=== PATIENT | female | born 1960 | race Caucasian/White ===

== ENCOUNTER 2019-05-01 11:53 | Inpatient (IN) | payer OTHER ==
[~2019-05-01] VITALS: Ht 167.6 cm; Wt 75.8 kg
[2019-05-01] VITALS (10 sets, daily range): BP systolic 101–130; BP diastolic 54–86
[2019-05-01 12:15] LABS: BASO % 0.2 % (0.0-1.0); EOS # 0.1 10*3/uL (0.0-0.4); EOS % 0.3 % (1.0-4.0); HEMATOCRIT 38.1 % (37.0-47.0); HEMOGLOBIN 13.2 g/dl (12.0-16.0); LYMPH # 1.2 10*3/uL (1.3-4.4); LYMPH % 6.2 % (27.0-41.0); MEAN CELL VOLUME 90.3 fl (81.0-99.0); MEAN CORPUSCULAR HGB 31.3 pg (27.0-31.0); MEAN CORPUSCULAR HGB CONC 34.6 g/dl (33.0-37.0); MEAN PLATELET VOLUME 10.9 fl (9.6-12.3); MONO % 5.1 % (3.0-9.0); NEUT # 16.4 10*3/uL (2.3-7.9); NEUT % 87.2 % (47.0-73.0); PLATELET COUNT AUTOMATED 195 10*3/uL (130-400); RED BLOOD COUNT 4.22 10*6/uL (4.10-5.10); RED CELL DISTRI WIDTH 12.7 % (0-14.5); WHITE BLOOD COUNT 18.7 10*3/uL (4.8-10.8)
[2019-05-01 12:36] LABS: ACT PARTIAL THROMBO TIME 27.1 SECONDS (20.0-32.1); INTERNATIONAL NORM RATIO 0.9 (2.0-3.5)
[2019-05-01 12:40] LABS: ALBUMIN 3.3 gm/dl (3.1-4.5); ALKALINE PHOSPHATASE 81 U/L (45-117); BUN 35 mg/dl (7-24); CHLORIDE 104 mmol/L (98-107); CREATININE 0.95 mg/dL (0.55-1.02); POTASSIUM 3.4 mmol/L (3.5-5.1); SGOT/AST 7 IU/L (3-35); SGPT/ALT 19 U/L (12-78); SODIUM 137 mmol/L (136-145); TOTAL PROTEIN 7.4 gm/dL (6.4-8.2)
[2019-05-01 12:42] LABS: TROPONIN I < 0.015 ng/ml (<0.045)
--- NOTE | 2019-05-01 14:40 | NUR ---
A 58, admitted to , under the services of [facility] Hagen DO with a diagnosis of PNEUMONIA, SEVERE SEPSIS. Chief complaint is MULTIPLE COMPLAINTS. Patient arrived via ambulatory from ER. Monitor applied. Initial assessment completed. Vital signs taken and recorded. DINH HAGEN DO notified of admission to the unit. Orders received. See assessment for past medical history, medications and allergies. Patient and/or family oriented to unit. [facility] visitation policy reviewed. Clothing/patient valuable form completed. CHRISTIE SAMPSON
--- NOTE | 2019-05-01 18:20 | NUR ---
PT MEDICATED W/MORPHINE FOR C/O LEFT CHEST PAIN 03/10. WILL MONITOR FOR EFFECTIVENESS.
--- NOTE | 2019-05-01 19:00 | NUR ---
PT RESTING QUIETLY IN BED W/EYES CLOSED. PRN MORPHINE EFFECTIVE FOR PAIN RELIEF.
--- NOTE | 2019-05-01 19:05 | NUR ---
Pt instructed on use of incentive spirometer and flutter valve. Pt complained of pain when taking a deep breath on IS and could not raise the disc to 500cc. Explained to pt that it is very important to deep breathe. Take walks and sit up in bed. Pt cried and said it hurt. Then explained the FV to the pt and informed her to use for secretions only and encouraged self use.
[2019-05-02] VITALS: BP 112/64
--- NOTE | 2019-05-02 00:15 | NUR ---
PATIENT RESTING IN BED IN A POSITION OF COMFORT, STATED PAIN HAS IMPROVED FROM A 9 TO A 6 AFTER BEING MEDICATED WITH MORPHINE. DENIES ANY OTHER NEEDS AT THIS TIME. CALL LIGHT WITHIN REACH. WILL CONTINUE TO MONITOR.
--- NOTE | 2019-05-02 04:10 | NUR ---
PATIENT RESTING IN BED IN A POSITION OF COMFORT, RESTING WITH EYES CLOSED BUT ARROUSABLE, RESPIRATIONS EASY AND NON-LABORED. CALL LIGHT WITHIN REACH. WILL CONTINUE TO MONITOR.
--- NOTE | 2019-05-02 05:48 | NUR ---
PATIENT MEDICATED AT HER REQUEST AT THIS TIME WITH NORCO FOR PAIN OF 8/10. ALERT AND ORIENTED, CALL LIGHT WITHIN REACH. WILL CONTINUE TO MONITOR.
--- NOTE | 2019-05-02 06:25 | NUR ---
PATIENT STATED THE PAIN IS BETTER AND STATED IT IS A 5/10 AT THIS TIME. PATIENT IS ALERT AND ORIENTED. CALL LIGHT WITHIN REACH. WILL CONTINUE TO MONITOR.
[2019-05-02 07:07] LABS: HEMATOCRIT 35.4 % (37.0-47.0); HEMOGLOBIN 11.8 g/dl (12.0-16.0); MEAN CORPUSCULAR HGB 31.3 pg (27.0-31.0); MEAN CORPUSCULAR HGB CONC 33.3 g/dl (33.0-37.0); MEAN PLATELET VOLUME 12.1 fl (9.6-12.3); PLATELET COUNT AUTOMATED 197 10*3/uL (130-400); RED BLOOD COUNT 3.77 10*6/uL (4.10-5.10); RED CELL DISTRI WIDTH 12.9 % (0-14.5); WHITE BLOOD COUNT 13.1 10*3/uL (4.8-10.8)
[2019-05-02 07:09] LABS: MEAN CELL VOLUME 93.9 fl (81.0-99.0)
[2019-05-02 07:10] LABS: INTERNATIONAL NORM RATIO 0.9 (2.0-3.5)
[2019-05-02 07:11] LABS: ALBUMIN 2.7 gm/dl (3.1-4.5); CHLORIDE 110 mmol/L (98-107); CHOLESTEROL 126 mg/dL (<200); CREATININE 0.71 mg/dL (0.55-1.02); HDL CHOLESTEROL 41 mg/dl (40-60); LDL CHOLESTEROL 71 mg/dL (9-159); PHOSPHOROUS 1.7 mg/dL (2.5-4.9); SGOT/AST 11 IU/L (3-35); SGPT/ALT 18 U/L (12-78); SODIUM 140 mmol/L (136-145); TOTAL PROTEIN 6.8 gm/dL (6.4-8.2); TRIGLYCERIDES 68 mg/dl (<150); VLDL CHOLESTEROL 14 mg/dL (6-40)
[2019-05-02 07:16] LABS: ALKALINE PHOSPHATASE 73 U/L (45-117); THYROID STIM HORMONE (HS) 0.344 uIU/ml (0.358-4.75)
[2019-05-02 07:34] LABS: BUN 23 mg/dl (7-24)
[2019-05-02 07:35] LABS: POTASSIUM 4.6 mmol/L (3.5-5.1)
[2019-05-02 07:48] LABS: PLATELET SUFFICIENCY NORMAL (NORMAL); TOTAL CELLS COUNTED 100 #CELLS
[2019-05-02 08:00] VITALS: BP 134/63
[2019-05-02 08:59] LABS: VITAMIN D, 25-HYDROXY 35.8 ng/mL (30-100)
[2019-05-02 12:00] VITALS: BP 131/66
--- NOTE | 2019-05-02 12:09 | NUR ---
MEDICATED WITH NORCO FOR COMPLAINTS OF PAIN IN CHEST AND IN LEFT SIDE OF BACK. RATES PAIN A 7 ON A PAIN SCALE OF 1-10
--- NOTE | 2019-05-02 14:33 | NUR ---
Server Security Administrator in to talk to patient. Patient states lives at HOME with FIANCE. There are FEW steps in the home. Physician: NONE Pharmacy: [facility] Home health services: NONE Patient's level of ADLs: INDEPENDENT Patient has working utilities: YES DME: NONE Follow-up physician's appointment after d/c: DOES NOT HAVE PCP, PT HAS LIST AT BEDSIDE Does patient want to access PORTAL?: NO Discharge plan . PT STATES SHE LIVES AT HOME ALONE AND IS INDEPENDENT IN CARE. STATES SHE WILL RETURN HOME WITH NO NEW NEEDS. WILL CONTINUE TO FOLLOW. PT STATES SHE HAS A RIDE HOME. NAM LEPE
--- NOTE | 2019-05-02 14:53 | NUR ---
SPEECH PATHOLOGY Nursing screen completed. Speech pathology services are not indicated at this time. This dept. will remain available if future needs arise. MONO BREAUX [facility]-TAG STRINGER
[2019-05-02 16:00] VITALS: BP 129/67
[2019-05-02 20:00] VITALS: BP 135/69
--- NOTE | 2019-05-02 20:32 | NUR ---
MEDICATED WITH NORCO FOR C/O BACK/CHEST PAIN RATED A 7/10.
[2019-05-03] VITALS: BP 144/67
--- NOTE | 2019-05-03 | NUR ---
RESTING IN BED WITH EYES CLOSED. MEDICATION GIVEN EARLIER APPARENTLY EFFECTIVE. CALL LIGHT WITHIN REACH.
--- NOTE | 2019-05-03 05:30 | NUR ---
AROUSES EASILY FOR MEDICATION. VOICES NO C/O AT THIS TIME. CALL LIGHT WITHIN REACH.
[2019-05-03 06:41] LABS: BASO % 0.2 % (0.0-1.0); HEMATOCRIT 36.9 % (37.0-47.0); HEMOGLOBIN 12.4 g/dl (12.0-16.0); LYMPH # 1.1 10*3/uL (1.3-4.4); LYMPH % 6.4 % (27.0-41.0); MEAN CELL VOLUME 92.3 fl (81.0-99.0); MEAN CORPUSCULAR HGB CONC 33.6 g/dl (33.0-37.0); MEAN PLATELET VOLUME 12.1 fl (9.6-12.3); MONO # 0.7 10*3/uL (0.1-1.0); MONO % 3.7 % (3.0-9.0); NEUT # 15.9 10*3/uL (2.3-7.9); PLATELET COUNT AUTOMATED 235 10*3/uL (130-400); WHITE BLOOD COUNT 17.9 10*3/uL (4.8-10.8)
[2019-05-03 06:57] LABS: BUN 20 mg/dl (7-24); CHLORIDE 109 mmol/L (98-107); POTASSIUM 4.3 mmol/L (3.5-5.1); SODIUM 139 mmol/L (136-145)
[2019-05-03 07:07] LABS: CREATININE 0.78 mg/dL (0.55-1.02); FREE T4 1.01 ng/dl (0.76-1.46)
[2019-05-03 08:00] VITALS: BP 140/70
[2019-05-03] MEDS ORDERED: FLONASE ALLERG9.9 ML NAS (09:25)
[2019-05-03] MEDS ORDERED: CLARITIN10 M1 PO (09:25)
--- NOTE | 2019-05-03 09:28 | NUR ---
NOTIFIED DR PEREA PT HOME MEDS WHERE RECONCILED AT BEDSIDE. ORDER RECIEVED TO CONTINUE HOME MEDS.
--- NOTE | 2019-05-03 09:35 | NUR ---
NORCO 5/325 MG GIVEN FOR C/O BACK PAIN,03/10.
[2019-05-03 12:00] VITALS: BP 165/80
--- NOTE | 2019-05-03 13:13 | NUR ---
RT AT BEDSIDE . PT SPO2 88% ON 2L. RT INCREASED O2 TO 3L HUMIDIFIED. WILL CONTINUE TO MONITOR. PT RESTING COMFORTABLY. VOICES NO OTHER C/O. SPO2 92%. PT CURRENTLY RECIEVING BREATHING TX. WILL CONTINUE TO MONITOR.
--- NOTE | 2019-05-03 13:37 | NUR ---
JESSERT, IN AT BEDSIDE REINFORCING INCENTIVE SPIROMETRY EDUCATION AND ENCOURAGING PT TO BE MORE PROACTIVE.
--- NOTE | 2019-05-03 14:32 | NUR ---
PT CURRENTLY SITTING IN BED DOING INCENTIVE SPIROMETRY INSTRUCTED BY RT.PT TOLERATING WELL. RESPS EASY ON 3L HUM NC. VOICES NO NEEDS AT THIS TIME. CALL LIGHT IN REACH.
--- NOTE | 2019-05-03 15:01 | NUR ---
PT CONTINUES TO SAY SHE WILL RETURN HOME WITH NO NEEDS.
[2019-05-03 16:00] VITALS: BP 182/80
--- NOTE | 2019-05-03 16:34 | NUR ---
NORCO 5/325 MG GIVEN FOR C/O BACK PAIN,02/07.
--- NOTE | 2019-05-03 16:45 | NUR ---
JULIO NOTIFIED ME THAT PT PRESSURE WAS HIGH. I TOOK MANUAL BP 182/80,HR 61.NOTIFIED DR PEREA. ORDER RECIEVED.
--- NOTE | 2019-05-03 17:31 | NUR ---
IV started right antecubital with #22 protective cath after 1 attempts. Site prepped with Chloroprep.IV started left hand with # protective cath after 1 attempts. Site prepped with Chloroprep. Sterile dressing applied Sterile dressing applied. Patient tolerated procedure well BY ELHAM JUAREZ.PT TOLERATED WELL. JENA BEARD
--- NOTE | 2019-05-03 17:58 | NUR ---
PT CURRENTLY SITTING UP AT BEDSIDE,READING NEWSPAPER. ATE DINNER BUT STILL REUSES TO GET IN BED. PT HAS EVERYTHING PACKED UP AND STATING "SHE'S LEAVING". EDUCATION PROVIDED REGARDING CALL LIGHT USE AND ATTEMPTED TO REORIENT PT. STABLE AT THIS TIME.CHAIR ALARM INTACT.CALL LIGHT IN REACH.
[2019-05-03 20:00] VITALS: BP 173/86
--- NOTE | 2019-05-03 20:47 | NUR ---
RESTING IN BED WITH EYES CLOSED. 02 INTACT AT 3LPM VIA N/C. PULSE OX 95% ON 3 LITERS. PT. VOICES NO C/O AT THIS TIME. CALL LIGHT WITHIN REACH.
[2019-05-04] VITALS: BP 142/71
--- NOTE | 2019-05-04 | NUR ---
RESTING IN BED WITH HOB ELEVATED; EYES CLOSED. 02 INTACT; NO DISTRESS NOTED. CALL LIGHT WITHIN REACH.
--- NOTE | 2019-05-04 06:00 | NUR ---
MEDICATED WITH NORCO FOR C/O PAIN RATED A 7/10.
[2019-05-04 06:49] LABS: HEMATOCRIT 36.2 % (37.0-47.0); MEAN CELL VOLUME 92.1 fl (81.0-99.0); MEAN CORPUSCULAR HGB 30.5 pg (27.0-31.0); MEAN CORPUSCULAR HGB CONC 33.1 g/dl (33.0-37.0); MEAN PLATELET VOLUME 11.1 fl (9.6-12.3); PLATELET COUNT AUTOMATED 233 10*3/uL (130-400); RED BLOOD COUNT 3.93 10*6/uL (4.10-5.10); RED CELL DISTRI WIDTH 12.6 % (0-14.5); WHITE BLOOD COUNT 13.2 10*3/uL (4.8-10.8)
[2019-05-04 07:07] LABS: BUN 23 mg/dl (7-24); CHLORIDE 106 mmol/L (98-107); CREATININE 0.67 mg/dL (0.55-1.02); POTASSIUM 3.7 mmol/L (3.5-5.1); SODIUM 138 mmol/L (136-145)
[2019-05-04 08:00] VITALS: BP 132/78; BP 161/77
[2019-05-04 08:08] LABS: OVALOCYTES FEW; PLATELET SUFFICIENCY NORMAL (NORMAL); TOTAL CELLS COUNTED 100 #CELLS
--- NOTE | 2019-05-04 10:18 | NUR ---
NORCO 5/325 MG GIVEN FOR C/PO PAIN,02/07.
[2019-05-04] MEDS ORDERED: ZITHROMAX500 MG PO (11:28)
[2019-05-04] MEDS ORDERED: PREDNISONE10 MG PO (11:28)
--- NOTE | 2019-05-04 11:56 | NUR ---
HOME O2 EVALUATION AT REST ON ROOM AIR - SP02 - 96%, HR - 64, BP - 181/88 ON AMBULATION ON RA - SP02 - 93 - 96% POST VITALS AT REST ON ROOM AIR - SP02 - 97%, HR - 101, BP - 178/86 PT DOES NOT QUALIFY FOR HOME OXYGEN
--- NOTE | 2019-05-04 12:11 | NUR ---
Discharge instructions reviewed with patient. Patient receptive and verbalizes understanding. Follow-up care TO BE arranged BY PATIENT. Written instructions given to patient. X2 IV CATH REMOVED, PATIENTS QUESTIONS ANSWERED. CORI CAPPS
--- NOTE | 2019-05-04 12:15 | NUR ---
Discharge instructions reviewed with patient/family. Patient receptive and verbalizes understanding. Follow-up care arranged. Written instructions given to patient/family. JENA BEARD
== END 2019-05-04 12:15 | disposition home or self-care (01) | DRG 720 ==
LOC: ED 11:53 → 5E 14:07 → EDHOLD 14:07 → 5E 14:27
PROVIDERS: Emergency Medicine; Student in an Organized Health Care Education/Training Program; ADMIT Internal Medicine
DX: A41.9 Sepsis, unspecified organism (principal); R65.20 Severe sepsis without septic shock; J18.1 Lobar pneumonia, unspecified organism; J96.01 Acute respiratory failure with hypoxia; E87.6 Hypokalemia; E66.3 Overweight; Z82.3 Family history of stroke; Z82.5 Family history of asthma and other chronic lower respiratory diseases; Z68.26 Body mass index [BMI] 26.0-26.9, adult

== ENCOUNTER → 2020-10-06 | Outpatient (CLI) | payer OTHER ==
[~2020-10-06] MED LIST: CLARITIN10 M1 PO; FLONASE ALLERG9.9 ML NAS; PREDNISONE10 MG PO; ZITHROMAX500 MG PO
[2020-10-06 16:09] LABS: BASO # 0.1 10*3/uL (0.0-0.1); BASO % 0.8 % (0.0-1.0); EOS # 0.2 10*3/uL (0.0-0.4); EOS % 2.8 % (1.0-4.0); HEMATOCRIT 43.6 % (37.0-47.0); LYMPH # 1.6 10*3/uL (1.3-4.4); LYMPH % 26.6 % (27.0-41.0); MEAN CORPUSCULAR HGB 30.5 pg (27.0-31.0); MEAN CORPUSCULAR HGB CONC 33.5 g/dl (33.0-37.0); MEAN PLATELET VOLUME 10.8 fl (9.6-12.3); MONO # 0.4 10*3/uL (0.1-1.0); MONO % 6.7 % (3.0-9.0); NEUT # 3.8 10*3/uL (2.3-7.9); NEUT % 62.9 % (47.0-73.0); PLATELET COUNT AUTOMATED 235 10*3/uL (130-400); RED BLOOD COUNT 4.79 10*6/uL (4.10-5.10); RED CELL DISTRI WIDTH 12.2 % (0-14.5); WHITE BLOOD COUNT 6.1 10*3/uL (4.8-10.8)
[2020-10-06 16:26] LABS: ALBUMIN 4.1 gm/dl (3.1-4.5); ALKALINE PHOSPHATASE 72 U/L (45-117); BILIRUBIN, DIRECT 0.1 mg/dL (0.0-0.2); BUN 25 mg/dl (7-24); CHLORIDE 110 mmol/L (98-107); CREATININE 0.69 mg/dL (0.55-1.02); POTASSIUM 4.8 mmol/L (3.5-5.1); SGOT/AST 15 IU/L (3-35); SGPT/ALT 31 U/L (12-78); SODIUM 142 mmol/L (136-145); TOTAL PROTEIN 7.1 gm/dL (6.4-8.2)
[2020-10-07 09:07] LABS: HEP B CORE AB, IGM Negative (Negative); HEPATITIS B SURFACE AG Negative (Negative); HEPATITIS C VIRUS ANTIBODY <0.1 s/co (0.0-0.9)
== END | disposition home or self-care (01) ==
LOC: LAB 15:25
PROVIDERS: ATTEND Registered Nurse Critical Care Medicine
DX: F11.11 Opioid abuse, in remission (principal); F14.11 Cocaine abuse, in remission